=== PATIENT | male | born 1975 | race Caucasian/White ===

== ENCOUNTER 2023-01-26 04:58 | Day surgery (SDC) | payer BC, OTHER ==
[2023-01-22 13:47] VITALS: BMI 34.2
[2023-01-26] MEDS ORDERED: FENTANYL CITRATE/PF 50 MCG/ML VIAL ONE ×2 (08:27→08:56)
[2023-01-26] MEDS ORDERED: MIDAZOLAM HCL 2 MG/2 ML SINGLE DOSE VIAL ONE ×2 (08:27→08:30)
[2023-01-26] MEDS ORDERED: ELECTROLYTE-148 SOLN 1,000 ML IV SCH (09:30)
[2023-01-26 09:50] VITALS: BP 147/78; PULSE 78; RESP 18; TEMP 97.5
== END 2023-01-26 10:01 | disposition home or self-care (01) ==
LOC: JASU-SURG 04:58
PROVIDERS: ATTEND Urology
PROC: 0TF3XZZ Fragmentation in Right Kidney Pelvis, External Approach (ICD-10-PCS; principal; 2023-01-26 08:15)
DX: N20.0 Calculus of kidney (principal)